=== PATIENT | female | born 1995 | race Caucasian/White ===

== ENCOUNTER 2018-09-09 05:51 | Emergency (ER) | payer BC ==
[~2018-09-09] VITALS: Ht 154.9 cm; Wt 52.2 kg
[2018-09-09 05:55] VITALS: BP 116/61
--- NOTE | 2018-09-09 05:55 | NUR ---
ASSUMED CARE OF PT AT THIS TIME. C/O DIFFUSE ABDOMINAL PAIN W/ N/V/D X 6 HOURS. AAOX4 WITH EVEN AND STEADY GAIT; PATIENT STATES PAIN OF 0/10; VSS; PATIENT POSITIONED FOR COMFORT; HOB ELEVATED; BEDRAILS UP X2; BED DOWN. ER MD MADE AWARE OF PT STATUS. WILL CONTINUE TO MONITOR.
--- NOTE | 2018-09-09 05:55 | NUR ---
TO BED # 8 AMBULATORY, REPORT GIVEN TO NASREEN QUINN
[2018-09-09] MEDS ORDERED: NACL 0.9% 1,000 ML IV ONE (06:25)
[2018-09-09] MEDS ORDERED: ONDANSETRON 4 MG/2 ML VIAL IVP ONE (06:25)
--- NOTE | 2018-09-09 06:38 | NUR ---
Dr. Andrade evaluating patient at bedside.
[2018-09-09 06:55] VITALS: BP 114/62
--- NOTE | 2018-09-09 06:55 | NUR ---
Patient discharged with v/s stable. Written and verbal after care instructions given and explained. Patient alert, oriented and verbalized understanding of instructions. Ambulatory with steady gait. All questions addressed prior to discharge. ID band removed. Patient advised to follow up with PMD. Rx of ZOFRAN, MOTRIN, AND IMODIUM given. Patient educated on indication of medication including possible reaction and side effects. Opportunity to ask questions provided and answered.
== END 2018-09-09 06:55 | disposition home or self-care (01) ==
LOC: MED 05:51
DX: R11.2 Nausea with vomiting, unspecified (principal); R19.7 Diarrhea, unspecified; J45.909 Unspecified asthma, uncomplicated
CPT/HCPCS: 96374; 99283; J2405; J7030